=== PATIENT | male | born 1990 | race Caucasian/White ===

== ENCOUNTER 2024-11-28 08:19 | Emergency (ER) | payer OTHER ==
[~2024-11-28] VITALS: Ht 177.8 cm; Wt 82.5 kg
[2024-11-28] MEDS ORDERED: IBUP80TA PO (10:45)
[2024-11-28 10:49] VITALS: BP 120/82; TEMP 96.2; O2SAT 100
== END 2024-11-28 10:51 | disposition home or self-care (01) ==
LOC: M ED 08:19
DX: S20.211A Contusion of right front wall of thorax, initial encounter (principal); W22.8XXA Striking against or struck by other objects, initial encounter; Y92.9 Unspecified place or not applicable; Y93.9 Activity, unspecified; Y99.1 Military activity; Z88.0 Allergy status to penicillin